=== PATIENT | female | born 1930 | race Caucasian/White ===

== ENCOUNTER 2019-02-06 12:24 | Inpatient (IN) | payer MEDICARE, OTHER ==
[~2019-02-06] VITALS: Ht 162.6 cm; Wt 75.8 kg
[~2019-02-06 12:24] MED LIST: BENZONATATE200 MG PO; CENTRUM SILVER1 EAC3 PO; CITRACAL + D M1 EACH PO; COMBIGAN EYE DRO5 ML OD; DOXYCYCLINE HYC50 MG PO; ISTALOL2.5 ML OU; LISINOPRIL10 MG PO; LUMIGAN2.5 M1 OPTH; METOPROLOL SUCC25 MG PO; MORGIDOX50 MG PO; OCUVITE TABLET1 EAC1 PO; PROAIR HFA8.5 GM INH; VICODIN 5-5001 EACH PO; VITAMIN D1000 UNI1 PO; WARFARIN SODIUM5 MG PO; XARELTO10 MG PO; XARELTO20 MG PO
--- NOTE | 2019-02-08 16:58 | HP ---
[facility] [address], [place] [address] Signed ADMISSION DATE: 02/06/2019 REASON FOR ADMISSION: Left lower abdominal tenderness and inflammatory changes of bowel. HISTORY OF PRESENT ILLNESS: This 88-year-old white woman is known to me from the past. She presented to the emergency room today where she was evaluated by Dr. Jerome with complaints of left lower abdominal pain. The pain has been going on since Saturday (today is Saturday) and is radiating to the left flank area. She has had normal bowel movements without bleeding or diarrhea. No fever or chills. She has had no nausea or vomiting. She does have distant history of diverticular disease requiring colectomy with colostomy and ultimately takedown. She has also had hysterectomy and appendectomy. 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 She is known to me from the past from surgical intervention including colon surgery, carpal tunnel release, and other interventions. A CT scan was performed on her evaluation this evening, which showed small bowel loops, which were matted and crowded together for few tiny lymph nodes enlarged and an intense inflammatory process with fat stranding in the adjacent mesentery. Bubbles of gas were present, some question of extraluminal air is noted. There are flecks of barium associated with this as well. I have reviewed these films. Additionally noted but asymptomatic overall is a hydropic gallbladder with a small amount of pericholecystic fluid. A gallbladder ultrasound had been performed as well, which confirmed gallbladder sludge and moderate gallbladder distention. Her lab studies were abnormal with a white count of 16.9, hematocrit of 34.1 with normal platelet count of 308,000. Coags showed elevated INR of 2.1 with a ProTime of 25.4. Chem profile was noted to be essentially normal. Bilirubin was 1.5. Liver enzymes otherwise normal including AST that is low at 12. Her lipase was less than 3. Urinalysis was essentially normal. REVIEW OF SYSTEMS: She denies any chest pain or shortness of breath. She has had no dysphagia or dysuria. Denies any hematemesis or blood per rectum. She has had no vomiting. PHYSICAL EXAMINATION: GENERAL: An obese white woman, who looks to be nontoxic. HEENT: Mucous membranes are slightly dry. Tongue is dark. Trachea is midline. There Electronically Signed By: GEORGETTE NG MD 02/08/19 1658 PATIENT NAME: LEIA VILLEGAS HISTORY AND PHYSICAL DATE OF : [birth year] REPORT #: [id number] PHYSICIAN: GEORGETTE NG MD PCP: KIMBERLEY VALLE MD REPORT IS CONFIDENTIAL AND NOT TO BE RELEASED WITHOUT AUTHORIZATION [facility] [address], [place] [address] Signed is no carotid bruit. CHEST: Clear. HEART: Regular without murmur. ABDOMEN: Obese, but soft overall. There is marked tenderness in the left lower abdomen. EXTREMITIES: Show no clubbing, cyanosis, or edema. There is no sign of acute or chronic venous stasis at this time. LABORATORY STUDIES: As described. CT scan as described. ASSESSMENT: The patient has marked inflammatory changes of bowel loops in the left lower quadrant, though this does not appear to be recurrent diverticulitis problem per se. Hydropic gallbladder is not accompanied by tenderness nor complaints of right upper abdominal pain. There is some sludge in the gallbladder based on ultrasound. The tenderness is such that IV antibiotics are certainly indicated and the underlying etiology of this problem remains somewhat of an enigma to me. I will review further with radiologist later regarding the possibility this may represent a diverticulitis problem though the interpretive report describes the matted loops to be small bowel rather than colon. The area I interpret as the colon and rectum are able to be followed and do not show signs of inflammation at all. The bowel that is inflamed is medial and cephalad to the sigmoid and left colon and there are inflammatory changes in the mesentery corresponding to that segment of small bowel. It does not appear to be obstructed. Whether this represents a segmental inflammatory process or other similar process is uncertain at this time. For now, fluid resuscitation, IV antibiotics, parenteral pain medication and generalized physiologic support is appropriate. We will maintain a heparin subcutaneously administered regimen to minimize chances of deep venous thrombosis as well as use of sequential compression device stockings. There is no clinical evidence of chronic venous stasis or sign of acute DVT at this time, though she is at high risk for that. Her ProTime is elevated and I will not continue with Coumadin by any means, but we will allow her ProTime to drift to normal if operative intervention should become necessary. Georgette Ng MD Electronically Signed By: GEORGETTE NG MD 02/08/19 1658 PATIENT NAME: LEIA VILLEGAS HISTORY AND PHYSICAL DATE OF : [birth year] REPORT #: [id number] PHYSICIAN: GEORGETTE GN MD PCP: KIMBERLEY VALLE MD REPORT IS CONFIDENTIAL AND NOT TO BE RELEASED WITHOUT AUTHORIZATION [facility] [address] [place] [place], [place] [address] Signed CODY/DEAN /[id number] cc: Eber Jerome MD Copies: EBER JEROME MD ~ Electronically Signed By: GEORGETTE NG MD 02/08/19 1658 PATIENT NAME: LEIA VILLEGAS HISTORY AND PHYSICAL DATE OF : [birth year] REPORT #: [id number] PHYSICIAN: GEORGETTE NG MD PCP: KIMBERLEY VALLE MD REPORT IS CONFIDENTIAL AND NOT TO BE RELEASED WITHOUT AUTHORIZATION
[2019-02-09] MEDS ORDERED: WARFARIN SODIUM4 MG PO (09:13)
[2019-02-09] MEDS ORDERED: LATANOPROST2.5 ML OU (09:14)
[2019-02-09] MEDS ORDERED: BRIMONIDINE TART5 M1 OU (09:16)
--- NOTE | 2019-02-12 11:24 | OR ---
[facility] [address] [place], [place] [address] Signed DATE OF OPERATION: 02/11/2019 SURGEON: Georgette Ng MD PREOPERATIVE DIAGNOSES: 1. Persistent left lower abdominal pain and tenderness with probable interloop abscess. 2. Hydropic gallbladder with sludge. POSTOPERATIVE DIAGNOSES: 1. 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 2. Extensive intraabdominal adhesions. 3. 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 4. Difficult IV access. PROCEDURES PERFORMED: 1. Right internal jugular central venous catheter placement. 2. Diagnostic laparoscopy. 3. Open laparotomy with extensive lysis of adhesions. 4. Drainage of intraabdominal abscess in region of proximal small bowel. 5. Segmental bowel resection of jejunum with [id number] hand-sewn functional prolonged complicated and difficult end-to-end jejunojejunostomy. 6. Open cholecystectomy. 7. Zoila gastrostomy (24-Bhutanese GRACE tube) ASSISTANTS: 1. Nurse (Saravanan Santos RN). 2. Nancy Patle RN. ANESTHESIA: General endotracheal. 1. Georgette Malhotra CRNA. 2. Luci Mathews CRNA. ultrasound-guided transabdominal block by silk crepe machine operator. INDICATION: This 88-year-old white woman is well known to me from the past having undergone sigmoid colectomy for perforated diverticulitis as well as end-colostomy and takedown of Electronically Signed By: GEORGETTE NG MD 02/12/19 1124 PATIENT NAME: LEIA VILLEGAS OPERATIVE REPORT DATE OF : [birth year] REPORT #: [id number] PHYSICIAN: GEORGETTE NG MD PCP: KIMBERLEY VALLE MD REPORT IS CONFIDENTIAL AND NOT TO BE RELEASED WITHOUT AUTHORIZATION [facility] [address] [place], [place] [address] Signed colostomy a number of years ago. She presented to the emergency room on February 06, 2019 with severe left lower abdominal pain. A CT scan showed marked inflammatory change of small bowel loops in the left lower quadrant as well as a hydropic gallbladder with sludge. The Hydropic gallbladder was not particularly symptomatic. The patient was given broad-spectrum antibiotics, parenteral pain medication, IV fluids and so forth and monitored closely. She has a history of extensive deep venous thrombosis with pulmonary embolism and is chronically anticoagulated with Coumadin. Though she has improved in her symptoms, she remains tender in the left lower abdomen. A repeat CT scan was performed, which showed probable abscess between small bowel loops as well as persistence of the hydropic gallbladder. She is admitted at this time to undergo laparoscopy, possible drainage of abscess, cholecystectomy, and other indicated procedures including possible bowel resection and open procedure. Additionally, patient consented preoperatively to central venous catheter placement as her peripheral IV failed immediately prior to operation, and she has unreliable IV access otherwise. FINDINGS: Placement of the right internal jugular catheter was without problem. Dark, nonpulsatile bleeding was noted from the internal jugular catheter that was used at the time of operation. On laparoscopy, she was found to have significant intraabdominal adhesions of small bowel to the anterior abdominal wall. There was a markedly dilated and hydropic and chronically inflamed gallbladder. Open laparotomy confirmed a dense mass making up small bowel loops which were impressively tangled and which incorporated an abscess ultimately discovered. 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 Resection of small bowel was undertaken with functional end-to-end [id number] jejunojejunostomy. The colon appeared normal. There was surgical absence of the appendix and pelvic organs. The gallbladder was markedly distended and inflamed and excision undertaken showed sludge but no stones. The stomach was normal. A gastrostomy tube was placed for postoperative decompression of the stomach and feeding if necessary as passage of a nasogastric tube was quite impossible by a nasal approach. DESCRIPTION OF PROCEDURE: The patient was brought to the operating room, given a general endotracheal anesthetic. The patients face Electronically Signed By: GEORGETTE NG MD 02/12/19 1124 PATIENT NAME: LEIA VILLEGAS OPERATIVE REPORT DATE OF : [birth year] REPORT #: [id number] PHYSICIAN: GEORGETTE NG MD PCP: KIMBERLEY VALLE MD REPORT IS CONFIDENTIAL AND NOT TO BE RELEASED WITHOUT AUTHORIZATION [address] [address] Signed was turned to the left and the right neck and upper torso were prepared with a chlorhexidine solution and draped sterilely. Sterile gown and gloves were used and Using a Seldinger technique, the right internal jugular vein was easily accessed showing dark nonpulsatile blood. A flexible J-wire was passed down the needle and the needle was removed. The site was incised with an #11 blade and dilated with Arrow Blue Tip dilating device and a previously inspected and irrigated Arrow Blue Tip triple-lumen catheter passed over the wire. The wire was removed and aspiration on the distal port showed dark, nonpulsatile bleeding. The catheter was withdrawn several cm so as to position the tip in the superior vena cava rather than the atrium. Using the enclosed collar device, it was secured to the neck with enclosed silk suture. An anti-infective disk applied as was an OpSite. Aspiration showed it to be highly functional. It was used during the operation. At that point, a Marsh catheter was placed. Sequential compression device stockings were used during throughout the operation. Preoperative heparin had been given. She has been on antibiotic meropenem along the way. The abdomen was prepared with chlorhexidine solution and draped sterilely. A supraumbilical incision was made along the line of prior midline incision and using an open Marcelo cannula technique, the abdomen was entered. Pneumoperitoneum was achieved at the level of 14 mmHg of carbon dioxide gas. Intraabdominal inspection showed no sign of ascites or carcinomatosis. The upper abdomen was then impressively distended with gallbladder with chronic inflammatory change. Liver was normal. Manipulation of the 30 degree laparoscope to the lower abdomen showed a dense whitish chronic inflammatory scarring of jumbled up loops of small bowel in the left lower quadrant. There were adhesions of small bowel to the anterior abdominal wall as well. Interrogation of the affected bowel in the left lower quadrant showed it to be firm and unyielding and a laparoscopic approach was considered quite unlikely to be beneficial. On that basis, the scope was removed and plans made for laparotomy. Laparotomy incision was made in the previous midline incision extending above and below the umbilicus, initially it was maintained as a very small incision. Lysis of adhesions undertaken on the left side in particular, freeing the small bowel adhesions. The area in question was a mass of small bowel tangled up beyond description and rather surprising that obstruction had not occurred. The mass was firm and hard. The incision was extended superiorly and inferiorly over the course of dissection and there were numerous other small bowel loops with dense adhesions requiring lysis. Ultimately, a Bookwalter retractor was placed. Further dissection of bowel loops ultimately allowed for identification of the proximal jejunum as it entered into the phlegmonous mass of snarled small bowel. Those loops of bowel were so completely fused that they could not be dissected free in any reasonable way. On that basis beyond the jumble of small bowel, Electronically Signed By: GEORGETTE NG MD 02/12/19 1124 PATIENT NAME: LEIA VILLEGAS OPERATIVE REPORT DATE OF : [birth year] REPORT #: [id number] PHYSICIAN: GEORGETTE NG MD PCP: KIMBERLEY VALLE MD REPORT IS CONFIDENTIAL AND NOT TO BE RELEASED WITHOUT AUTHORIZATION [facility] [address] [place], [place] [address] Signed bowel loops that could be identified were freed with sharp and electrocautery dissection taking special care to avoid enterotomies. Those bowel loops were rather decompressed and a somewhat functional small bowel obstruction probably did occur in relation to the jumble of small bowel containing the firm mass. Once the entry and exit bowel loops to the bowel could be identified, more dissection was undertaken trying to spare as much small bowel as possible. 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 It was considered likely she had an abscess related to a perforated diverticulum rather than a malignancy per se. Further dissection in the central portion of the jumble of amorphous bowel loops was undertaken ultimately identifying an abscess cavity. The purulent material was thick and was Gram stained and cultured. Dissection in the upper abdomen identified well the transverse colon and the right colon. The mesentery going to the jumble of small bowel which would be completely impossible to separate was deemed most advised to resect. An area proximal to the tangle of bowel loops and distal as well was identified as viable and easily discerned. The mesentery to this area was incised with electrocautery. Sequential application of hemostats undertaken. The blood vessels were secured with 0 silk ties some times doubly applied. In the thickest portion of the mesentery in the central aspect, heavy Sabrina clamps were applied and heavy 0 silk ties doubly applied. Using a OPAL stapling device, the jejunum proximally is transected. This would be approximately 10 inches from the ligament of Treitz itself. Downstream, so as to preserve bowel, somewhat decompressed bowel was similarly transected. The stapled ends were oversewn.THere as a size discrepency of the two limbs of bowel of considerable size. The specimen was explanted and examination on the back table allowed for transection showing a well-formed abscess cavity in relation to the jumble of bowel that had been resected. Approximately 12 inches of small bowel was resected at that point, I believe. Inspection proximally showed the jejunum to be free of diverticula and completely viable. In the downstream segment of jejunum, the bowel was decompressed and had numerous acutely angulated and tightly coiled areas of interloop adhesions. These were freed with sharp dissection more fully. It was clear that complete freeing of small bowel adhesions was unlikely given the dense nature of them. The distal segment of bowel of approximately 8 more inches in length was resected back to highly reliable bowel as manifest by complette viability and lack of significant adhesion-related angulation deformities. Electronically Signed By: GEORGETTE NG MD 02/12/19 1124 PATIENT NAME: LEIA VILLEGAS OPERATIVE REPORT DATE OF : [birth year] REPORT #: [id number] PHYSICIAN: GEORGETTE NG MD PCP: KIMBERLEY VALLE MD REPORT IS CONFIDENTIAL AND NOT TO BE RELEASED WITHOUT AUTHORIZATION [facility] [address] [place], [place] [address] Signed Plans were then made for enteroenterostomy. A [id number] jejunojejunostomy was then undertaken with a two layer technique of interrupted 3-0 silk suture for the serosal layer and interrupted 3-0 Vicryl for the inner layer. The anastomosis was approximately 5-6 inches in length. The mesenteric defect was carefully reapproximated so as to avoid postoperative internal herniation. Irrigation was undertaken and isolating laparotomy packs removed. The bowel appeared quite viable. Attention was turned towards a hydropic gallbladder. The Bookwalter retractor that had been applied was readjusted and the very markedly distended gallbladder examined. A pursestring suture of 3-0 silk suture was used to decompress fluid from the gallbladder. A ring clamp was applied. Using electrocautery, the peritoneum overlying the gallbladder was incised with electrocautery. The gallbladder was freed from the overlying liver with meticulous care. Clips were applied as necessary. Ultimately, the infundibulum was well identified as was a relatively dominant cystic artery. This was doubly clipped and divided. Once the cystic duct was completely isolated, it was transected and secured with 0 silk tie and two additional large clips. Irrigation was undertaken. The duodenum appeared normal. The gallbladder was opened on the back table and found to have chronic inflammatory change and sludge. There were no stones. Irrigation was undertaken more fully. Examination of the small bowel undertaken showing good viability in the region of the anastomosis and elsewhere. Given her possibility of a prolonged ileus and need for gastric decompression, a G-tube was considered. The silk crepe machine operator had been unable to pass a nasogastric tube at the time of outset of the operation and an orogastric tube had been used for decompression. On that basis, a gastrostomy for decompression and/or subsequent feeding was deemed advisable. Using a Zoila technique of interrupted 3-0 silk suture on the anterior aspect of the stomach, in the area considered the junction between the body and antrum of the stomach. A feeding 24-Bhutanese GRACE gastrostomy tube was placed. The pursestring sutures were secured once a gastrotomy was made using electrocautery. The GRACE tube was passed through the left upper quadrant abdominal wall and the balloon tested before insertion into the stomach. The balloon was insufflated and found to be optimal. The gastrostomy tube was insuated into the stomach and tested with fluid. The pursestring sutures were secured. The stomach serosa was then secured to the left upper quadrant of the inner table of the abdominal wall with interrupted 3-0 silk suture. The balloon was snugged up more fully and the flange secured. It marked at approximately 4 cm. This was secured with a heavy nylon tie and ultimately a nylon suture. Irrigation was undertaken more fully. Reexamination of the abdominal contents undertaken as there was oozing of blood in the left abdominal wall area from dissection. A 7 mm flat Felipe drain was placed through a separate stab incision in the left lower quadrant and Electronically Signed By: GEORGETTE NG MD 02/12/19 1124 PATIENT NAME: LEIA VILLEGAS OPERATIVE REPORT DATE OF : [birth year] REPORT #: [id number] PHYSICIAN: GEORGETTE NG MD PCP: KIMBERLEY VALLE MD REPORT IS CONFIDENTIAL AND NOT TO BE RELEASED WITHOUT AUTHORIZATION [address] [address] [address]igned positioned in the place and secured to the skin with nylon suture. The omentum was placed over the abdominal contents and plans made for closure. Using running bidirectional #1 PDS suture, the midline fascia was reapproximated. Subcutaneous tissue was copiously irrigated with saline solution. Skin closed with a clip device. Mepilex silver sponge dressing was applied. The Felipe drain was attached to bulb suction; the G-tube to drainage device and secured with OpSite as well. The silk crepe machine operator requested that she be allowed to have ultrasound-guided abdominal wall block for postoperative analgesia and this was undertaken by the silk crepe machine operator. She was somewhat slow to extubate and was transferred to recovery room in good condition, still intubated, but breathing spontaneously, anticipating extubation and recovery room. The operation was very prolonged complicated, and difficult lasting from 9:00 a.m. to 3:00 p.m. BLOOD LOSS: Was estimated at 50 mL or less. MD CODY Justice/DEAN /[id number] cc: Dr. Ariella Perkins Copies: ~ Electronically Signed By: GEORGETTE NG MD 02/12/19 1124 PATIENT NAME: LEIA VILLEGAS OPERATIVE REPORT DATE OF : [birth year] REPORT #: [id number] PHYSICIAN: GEORGETTE NG MD PCP: KIMBERLEY VALLE MD REPORT IS CONFIDENTIAL AND NOT TO BE RELEASED WITHOUT AUTHORIZATION
[2019-02-27] MEDS ORDERED: MAPAP325 MG PO (15:08)
[2019-02-27] MEDS ORDERED: CALCIUM CARBON200 MG PO (15:09)
[2019-02-27] MEDS ORDERED: SIMETHICONE80 MG PO (15:09)
[2019-02-27] MEDS ORDERED: FAMOTIDINE20 MG PO (15:09)
[2019-02-27] MEDS ORDERED: METOCLOPRAMIDE H5 MG PO (15:10)
[2019-02-27] MEDS ORDERED: COUMADIN3 MG PO (15:13)
--- NOTE | 2019-02-28 10:33 | DS ---
[facility] [address] [place], [place] [address] Signed ADMISSION DATE: 02/06/2019 DISCHARGE DATE: 02/27/2019 REASON FOR ADMISSION: This 88-year-old white woman is known to me from the past and presented to the emergency room where she was evaluated by Dr. Jerome with complaints of left lower abdominal pain, which has been going on since Saturday (day of admission, Saturday). Notably a year previously, she had a significant deep venous thrombosis on the left side with pulmonary emboli and is chronically anticoagulated, and on that basis, is fully anticoagulated upon presentation. A CT scan was performed in her admission evaluation, which showed small bowel loops, matted and crowded together with few tiny lymph nodes enlarged and intense inflammatory process, possible abscess. She is admitted for further evaluation and care. PERTINENT PHYSICAL EXAMINATION: Showed a white count 16.9, hematocrit of 34.1, normal platelets of 308,000. INR was 2.1 with a ProTime of 25.4. Liver enzymes were essentially normal. HEENT: Clinical exam showed her to not have systemic toxicity. Mucous membranes are slightly dry. Tongue was dark. Trachea midline. CHEST: Clear. HEART: Regular without murmur. ABDOMEN: Obese, but soft. There is marked tenderness in the left lower abdomen. HOSPITAL COURSE: She was admitted, given broad-spectrum antibiotics for her obstructive cause for her inflammatory process. She was allowed clear liquids, which she tolerated without nausea or vomiting. Intense inflammatory process did not improve over time and her hematocrit drifted to 27.9. Her admission hematocrit was 34.1. LABORATORY DATA: White count decreased, but she continued to have marked tenderness in the left mid abdomen. A repeat CT scan was obtained which confirmed a high probability of an abscess in bowel loops in the left lower abdomen. On February 11, 2019, she underwent exploratory laparotomy. A laparoscopy was performed initially, but the process was so intensely inflamed. There was no possible way a laparoscopic approach could be used to remedy the problem. Additionally, she had a right internal jugular catheter placed open laparotomy with extensive lysis of adhesions was undertaken and drainage of an intraabdominal abscess in the region. The proximal small bowel segmental bowel resection of jejunum with [id number] hand-sewn functional anastomosis was undertaken. The operation was prolonged, complicated, and difficult taking 7 and 0.5 hours. She additionally had open cholecystectomy for chronic inflammatory changes of the gallbladder and a dilated Electronically Signed By: GEORGETTE NG MD 02/28/19 1033 PATIENT NAME: LEIA VILLEGAS DISCHARGE SUMMARY DATE OF : [birth year] REPORT #: [id number] PHYSICIAN: GEORGETTE NG MD PCP: KIMBERLEY VALLE MD REPORT IS CONFIDENTIAL AND NOT TO BE RELEASED WITHOUT AUTHORIZATION [address] [address] Signed gallbladder. A Zoila gastrostomy was placed for postoperative decompression. She did well following operation was taken to the intensive care unit where she was monitored in decompression of her stomach undertaken. She had drifting of her hematocrit down to 17. A drain was placed. The abdomen did drain some bloody fluid. Her preoperative hematocrit was 27, and she was transfused from her hematocrit of 17 up to 31. She had progressive improvement, was able to tolerate liquids and ultimately allowing for capping off her G-tube. In aggregate, she had 4 units of blood. Consultation with hospitalist was undertaken regarding beta-haven administration given her chronic use of that. 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 Her diet was advanced and she was improving well and transitioning to oral anticoagulant warfarin once again. She then had rather abrupt and sudden lozano of her progress requiring initiation of total parenteral nutrition for a few days. Contrast study of her small bowel was undertaken showing no sign of obstruction at the operative site or elsewhere. In time with initiation of antacids, simethicone and ultimately Reglan, she began oral intake again. By day of discharge, she is eating 80% of her solid food, taking Reglan 5 mg p.o. q.i.d. The wound is healed well. Drains have been removed. The G-tube remains in place. She was discharged to home anticoagulated with an INR of 2.6 on a dose of Coumadin currently at 3 mg. We will anticipate to remove her gastrostomy tube in the office setting once fully convinced that her problem has resolved entirely, which I suspect it has. Of note, the abscess grew Klebsiella. Antibiotic therapy had been modified to accommodate that initially broad-spectrum meropenem. Ultimately, Ancef, transitioning to oral agent and ultimately withdrawn. HER DISCHARGE MEDICATIONS: Will include: 1. Tylenol 325 mg two tabs q.6 hours as needed for pain. 2. Tums tablets 200 mg two p.o. q.i.d. as needed. 3. Simethicone 160 mg tablet as needed for "gas.". 4. Famotidine 20 mg p.o. q.12 hours. 5. Reglan 5 mg p.o. q.6 hours, #120, refill 1. Instructed regarding adverse side effects including tardive dyskinesia symptoms. 6. Coumadin 3 mg p.o. daily. 7. She will resume her usual medications of vitamin D3 1000 units daily, vitamin A, C, lutein one tablet p.o. daily, multivitamins one tablet p.o. daily, Citracal one tablet p.o. daily, metoprolol 12.5 mg p.o. h.s. Electronically Signed By: GEORGETTE NG MD 02/28/19 1033 PATIENT NAME: LEIA VILLEGAS DISCHARGE SUMMARY DATE OF : [birth year] REPORT #: [id number] PHYSICIAN: GEORGETTE NG MD PCP: KIMBERLEY VALLE MD REPORT IS CONFIDENTIAL AND NOT TO BE RELEASED WITHOUT AUTHORIZATION [facility] [address] [place], [place] [address] Signed 8. Timolol maleate eyedrops one drop each eye 2 times daily. 9. Doxycycline 50 mg p.o. at bedtime (long-standing) to avoid UTI. 10. Latanoprost 2.5 mL one drop each eye at h.s. and brimonidine tartrate one drop each eye b.i.d. DISCHARGE DIAGNOSES: 1. 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 2. History of deep venous thrombosis with pulmonary emboli, chronically anticoagulated. 3. Obesity. 4. Glaucoma. 5. Prolonged postoperative bowel recovery. FOLLOWUP PLAN: She is return to see me in approximately a month. She is permitted to shower and should walk daily. MD CODY Justice/RAMBOL /[id number] cc: MD Eber Mcgrath MD Copies: KIMBERLEY VALLE MD, WILLIAM S MD ~ Electronically Signed By: GEORGETTE NG MD 02/28/19 1033 PATIENT NAME: LEIA VILLEGAS DISCHARGE SUMMARY DATE OF : [birth year] REPORT #: [id number] PHYSICIAN: GEORGETTE NG MD PCP: KIMBERLEY VALLE MD REPORT IS CONFIDENTIAL AND NOT TO BE RELEASED WITHOUT AUTHORIZATION
== END 2019-02-27 16:20 | disposition home or self-care (01) | DRG 327 ==
LOC: ED 12:24 → CCU 16:51 → MS 16:51 → CCU 02-11 16:10 → MS 02-11 16:10 → CCU 02-11 16:10 → MS 02-15 16:00 → CCU 02-15 16:00 → MS 02-15 16:00
PROVIDERS: ADMIT Surgery
PROC: 0DBA0ZZ Excision of Jejunum, Open Approach (ICD-10-PCS; principal; 2019-02-11 08:30)
PROC: 0D9600Z Drainage of Stomach with Drainage Device, Open Approach (ICD-10-PCS; 2019-02-11 08:30)
PROC: 0FT40ZZ Resection of Gallbladder, Open Approach (ICD-10-PCS; 2019-02-11 08:30)
PROC: 0DN80ZZ Release Small Intestine, Open Approach (ICD-10-PCS; 2019-02-11 08:30)
PROC: 0WJG4ZZ Inspection of Peritoneal Cavity, Percutaneous Endoscopic Approach (ICD-10-PCS; 2019-02-11 08:30)
PROC: 02HV33Z Insertion of Infusion Device into Superior Vena Cava, Percutaneous Approach (ICD-10-PCS; 2019-02-11 08:30)
PROC: 30243N1 Transfusion of Nonautologous Red Blood Cells into Central Vein, Percutaneous Approach (ICD-10-PCS; 2019-02-13)
DX: K57.00 Diverticulitis of small intestine with perforation and abscess without bleeding (principal); K82.1 Hydrops of gallbladder; B96.1 Klebsiella pneumoniae [K. pneumoniae] as the cause of diseases classified elsewhere; K66.0 Peritoneal adhesions (postprocedural) (postinfection); K81.1 Chronic cholecystitis; E66.9 Obesity, unspecified; H40.9 Unspecified glaucoma; D64.9 Anemia, unspecified; G47.00 Insomnia, unspecified; I12.9 Hypertensive chronic kidney disease with stage 1 through stage 4 chronic kidney disease, or unspecified chronic kidney disease; N18.3 Chronic kidney disease, stage 3 (moderate); E78.5 Hyperlipidemia, unspecified; M19.90 Unspecified osteoarthritis, unspecified site; I27.20 Pulmonary hypertension, unspecified; I51.9 Heart disease, unspecified; Z86.718 Personal history of other venous thrombosis and embolism; Z86.711 Personal history of pulmonary embolism; Z87.891 Personal history of nicotine dependence; Z79.01 Long term (current) use of anticoagulants; Z79.899 Other long term (current) drug therapy; Z88.5 Allergy status to narcotic agent; Z88.0 Allergy status to penicillin; Z88.2 Allergy status to sulfonamides; Z88.7 Allergy status to serum and vaccine; Z53.31 Laparoscopic surgical procedure converted to open procedure
CPT/HCPCS: 00840; 31720; 36415; 36430; 36600; 71045; 74018; 74177; 74250; 76705; 80048; 80053; 80061; 81001; 82247; 82465; 82803; 83615; 83690; 83735; 84100; 84134; 84478; 84550; 85025; 85610; 85730; 86850; 86900; 86901; 86920; 87070; 87075; 87077; 87186; 87205; 87493; 87502; 88304; 88307; 94002; 96361; 97110; 97116; 97162; 97530; 99285-25; J0131; J0330; J0690; J0692; J1100; J1170; J1644; J1720; J1885; J1940; J2185; J2250; J2270; J2405; J2704; J2765; J2795; J2997; J3010; J3475; J7030; J7042; J7060; J7120; P9016; Q9967